=== PATIENT | female | born 1990 | race Caucasian/White ===

== ENCOUNTER 2022-07-18 09:07 | Observation (INO) | payer MEDICAID | END 2022-07-18 09:25 | disposition left against medical advice (07) | LOC: 8 EST LDRP 09:07 | PROVIDERS: ADMIT Obstetrics & Gynecology; ATTEND Obstetrics & Gynecology | DX: O46.90 Antepartum hemorrhage, unspecified, unspecified trimester (principal); O62.9 Abnormality of forces of labor, unspecified; Z3A.00 Weeks of gestation of pregnancy not specified | CPT/HCPCS: G0378 ==